=== PATIENT | female | born 1995 | race Caucasian/White ===

== ENCOUNTER 2018-04-11 07:12 | Emergency (ER) | payer BC, OTHER ==
[2018-04-11 07:22] VITALS: RESP 18
--- NOTE | 2018-04-11 07:42 | ED ---
General Adult HPI - General Chief complaint: Vaginal Bleeding Stated complaint: 7 weeks & bleeding Source: patient Mode of arrival: ambulatory - History of Present Illness Initial comments: Dictation was produced using [employer] dictation software. please excuse any grammatical, word or spelling errors. Chief Complaint: 23-year-old female with no significant past medical history, presents with vaginal bleeding. History of Present Illness: Patient is 23-year-old female she had multiple urine positive test recently. She is allegedly 7-8 weeks based on last menstrual period. Patient states she woke up this morning with some blood on her underwear. She denies any active bleeding. Patient has history of 3 pregnancies. Her first one resulted in a medical , she has 1 live child. This is her third . Patient denies any constitutional symptoms. Denies any pain complaints The ROS documented in this emergency department record has been reviewed and confirmed by me. Those systems with pertinent positive or negative responses have been documented in the HPI. All other systems are other negative and/or noncontributory. - Related Data Home Medications Medication Instructions Recorded Confirmed Acetaminophen Tab [Tylenol Tab] 325 mg PO Q6H PRN 04/11/18 04/11/18 Vpp-Zhea-Pmboq Acid 1 cap PO DAILY 04/11/18 04/11/18 [-U Capsule (formulary)] Allergies Allergy/AdvReac Type Severity Reaction Status Date / Time No Known Allergies Allergy Verified 04/11/18 08:52 Review of Systems ROS Statement: Those systems with pertinent positive or pertinent negative responses have been documented in the HPI. ROS Other: All systems not noted in ROS Statement are negative. Past Medical History Past Medical History: No Reported History History of Any Multi-Drug Resistant Organisms: None Reported Additional Past Surgical History / Comment(s): Past Psychological History: No Psychological Hx Reported Smoking Status: Never smoker Past Alcohol Use History: Rare Past Drug Use History: None Reported General Exam - General Exam Comments Initial Comments: PHYSICAL EXAM: General Impression: Alert and oriented x3, not in acute distress HEENT: Normocephalic atraumatic, extra-ocular movements intact, pupils equal and reactive to light bilaterally, mucous membranes moist. Cardiovascular: Heart regular rate and rhythm, S1&S2 audible, no murmurs, rubs or gallops Chest: Lungs clear to auscultation bilaterally, no rhonchi, no wheeze, no rales Abdomen: Bowel sounds present, abdomen soft, non-tender, non-distended, no organomegaly Musculoskeletal: Pulses present and equal in all extremities, no peripheral edema Motor: Power 5/5 bilaterally, no focal deficits noted Neurological: CN II-XII grossly intact, no focal motor or sensory deficits noted Skin: Intact with no visualized rashes Psych: Normal affect and mood Course Vital Signs 04/11/18 04/11/18 07:15 09:40 Temperature 98.1 F 98.8 F Pulse Rate 86 72 Respiratory 18 18 Rate Blood Pressure 133/79 129/75 O2 Sat by Pulse 100 98 Oximetry Medical Decision Making - Medical Decision Making ED course: 23-year-old female presents with vaginal bleeding in . Vital signs upon arrival are within normal limits.Laboratory evaluation obtained. CBC unremarkable. Metabolic panel is negative. Urine hCG is positive. Patient is blood type A positive. Transvaginal ultrasound was obtained showing single live intrauterine gestation with crown-rump length of 0.8 cm. There is a heart rate. Ultrasound H is approximately 26 weeks and 5 days. There is small subchorionic hemorrhage noted. Overall exam indicated at this time. Pelvic examination showed mild bleeding coming from the cervical os. Patient told that this could be early signs of miscarriage. She is told that she has small chorionic hemorrhage. She is counseled on pelvic rest. Otherwise she is told to schedule follow-up with [facility] [facility] as scheduled. She has an appointment early next week. Patient understandable and agreeable to plan. She is told back with any worsening symptoms. - Lab Data Result diagrams: 04/11/18 07:35 04/11/18 07:35 Lab Results 04/11/18 04/11/18 04/11/18 Range/Units 07:35 07:35 07:35 WBC 9.5 (3.8-10.6) k/uL RBC 4.48 (3.80-5.40) m/uL Hgb 13.4 (11.4-16.0) gm/dL Hct 40.1 (34.0-46.0) % MCV 89.6 (80.0-100.0) fL MCH 30.0 (25.0-35.0) pg MCHC 33.5 (31.0-37.0) g/dL RDW 12.3 (11.5-15.5) % Plt Count 323 (150-450) k/uL Neutrophils % 75 % Lymphocytes % 19 % Monocytes % 4 % Eosinophils % 1 % Basophils % 1 % Neutrophils # 7.1 (1.3-7.7) k/uL Lymphocytes # 1.8 (1.0-4.8) k/uL Monocytes # 0.3 (0-1.0) k/uL Eosinophils # 0.1 (0-0.7) k/uL Basophils # 0.1 (0-0.2) k/uL Sodium 138 (137-145) mmol/L Potassium 3.8 (3.5-5.1) mmol/L Chloride 103 (98-107) mmol/L Carbon Dioxide 23 (22-30) mmol/L Anion Gap 12 mmol/L BUN 9 (7-17) mg/dL Creatinine 0.64 (0.52-1.04) mg/dL Est GFR (CKD-EPI)AfAm >90 (>60 ml/min/1.73 sqM) Est GFR (CKD-EPI)NonAf >90 (>60 ml/min/1.73 sqM) Glucose 108 H (74-99) mg/dL Calcium 9.3 (8.4-10.2) mg/dL Urine HCG, Qual Detected (Not Detectd) Blood Type Blood Type Recheck Antibody Screen Spec Expiration Date 04/11/18 Range/Units 07:35 WBC (3.8-10.6) k/uL RBC (3.80-5.40) m/uL Hgb (11.4-16.0) gm/dL Hct (34.0-46.0) % MCV (80.0-100.0) fL MCH (25.0-35.0) pg MCHC (31.0-37.0) g/dL RDW (11.5-15.5) % Plt Count (150-450) k/uL Neutrophils % % Lymphocytes % % Monocytes % % Eosinophils % % Basophils % % Neutrophils # (1.3-7.7) k/uL Lymphocytes # (1.0-4.8) k/uL Monocytes # (0-1.0) k/uL Eosinophils # (0-0.7) k/uL Basophils # (0-0.2) k/uL Sodium (137-145) mmol/L Potassium (3.5-5.1) mmol/L Chloride (98-107) mmol/L Carbon Dioxide (22-30) mmol/L Anion Gap mmol/L BUN (7-17) mg/dL Creatinine (0.52-1.04) mg/dL Est GFR (CKD-EPI)AfAm (>60 ml/min/1.73 sqM) Est GFR (CKD-EPI)NonAf (>60 ml/min/1.73 sqM) Glucose (74-99) mg/dL Calcium (8.4-10.2) mg/dL Urine HCG, Qual (Not Detectd) Blood Type A Positive Blood Type Recheck No Antibody Screen NEGATIVE Spec Expiration Date 04/14/2018 - 233 Disposition Clinical Impression: Vaginal bleeding affecting early Disposition: HOME SELF-CARE Condition: Good Instructions: First Trimester Vaginal Bleed (ED) Is patient prescribed a controlled substance at d/c from ED?: No Referrals: Juan Bonner DO [Primary Care Provider] - 1-2 days Time of Disposition: 10:04
[2018-04-11 07:50] LABS: Basophils # (A) 0.1 k/uL (0-0.2); Basophils % (A) 1 %; Eosinophils # (A) 0.1 k/uL (0-0.7); Eosinophils % (A) 1 %; HCT 40.1 % (34.0-46.0); HGB 13.4 gm/dL (11.4-16.0); Lymphocytes # (A) 1.8 k/uL (1.0-4.8); Lymphocytes % (A) 19 %; MCHC 33.5 g/dL (31.0-37.0); MCV 89.6 fL (80.0-100.0); Mean Platelet Volume 6.9; Monocytes # (A) 0.3 k/uL (0-1.0); Monocytes % (A) 4 %; Neutrophils # (A) 7.1 k/uL (1.3-7.7); Neutrophils % (A) 75 %; Platelet Count 323 k/uL (150-450); RBC 4.48 m/uL (3.80-5.40); RDW 12.3 % (11.5-15.5); WBC 9.5 k/uL (3.8-10.6)
[2018-04-11 08:04] LABS: Anion Gap 12 mmol/L; Blood Urea Nitrogen 9 mg/dL (7-17); Calcium 9.3 mg/dL (8.4-10.2); Carbon Dioxide 23 mmol/L (22-30); Chloride 103 mmol/L (98-107); Glucose 108 mg/dL (74-99); Potassium 3.8 mmol/L (3.5-5.1); Sodium 138 mmol/L (137-145)
--- NOTE | 2018-04-11 08:49 | US ---
EXAMINATION TYPE: Transabdominal DATE OF EXAM: 10/29/17 COMPARISON: NONE CLINICAL HISTORY: pain. bleeding with EXAM PERFORMED: Transvaginal (TV) and Transabdominal (TA) EXAM MEASUREMENTS: GESTATIONAL AGE / DATING Physician Established: Not yet established Dates by LMP: (7 weeks/5 days) EDC: 11/23/2018 Dates by First Scan: No previous this is first scan Dates by Current Scan for: (6 weeks/6 days) EDC: 11/29/2018 MATERNAL ANATOMY Uterus: 9.5 x 4.4 x 5.3 cm Right Ovary: 3.7 x 2.9 x 2.7 cm Left Ovary: 3.5 x 1.8 x 1.7 cm Post CDS / Adnexa: no free fluid Presence of free fluid: none Presence of subchorionic bleed: hypoechoic area adjacent to sac measures 1.5 x 0.7 x 1.5 cm GESTATION / SURVEY CRL: 0.8 cm (6 weeks/5 days) MSD: 2.1 cm (6 weeks/6 days) Yolk Sac (normal less than 6mm): 0.2 cm Heart Rate: 118 bpm Rhythm: Normal IUP: Viable IUP Date of LMP: 02/16/2018 Viable IUP, 6 weeks 6 days, HR 118. Single live intrauterine gestation is seen as gestational sac, yolk sac, and pole are present. No free fluid is seen in pelvic cul-de-sac. There is suspected small subchorionic hemorrhage along in ferior-anterior margin as detailed above. Both ovaries are seen. No suspicious extraovarian adnexal masses are present. IMPRESSION: Single live intrauterine gestation is seen, mean crown-rump length is 0.8 cm corresponding to 6 week 5 day old fetus. Small subchorionic hemorrhage is noted.
[2018-04-11 09:42] VITALS: BP 129/75; PULSE 72; TEMP 98.8
== END 2018-04-11 10:16 | disposition home or self-care (01) ==
LOC: EC 07:12
DX: O20.9 Hemorrhage in early pregnancy, unspecified (principal); Z3A.01 Less than 8 weeks gestation of pregnancy
CPT/HCPCS: 36415; 76801; 76817; 80048; 81025; 85025; 86850; 86900; 86901; 99284

== ENCOUNTER 2018-11-23 14:29 | Inpatient (IN) | payer OTHER ==
[2018-11-25] MEDS ORDERED: CARBOPROST TROMETHAMINE 250 MCG/ML 1 ML AMP IM PRN (06:05)
[2018-11-25] MEDS ORDERED: METHYLERGONOVINE 0.2 MG/ML 1 ML AMP IM PRN (06:05)
[2018-11-25] MEDS ORDERED: LIDOCAINE 0.5% (PF) 5 MG/ML (50 ML SDV) SQ PRN (06:05)
[2018-11-25] MEDS ORDERED: OXYTOCIN 10 UNIT/ML 1 ML VIAL IM PRN (06:05)
[2018-11-25] MEDS ORDERED: TERBUTALINE 1 MG/ML VIAL SQ PRN (06:05)
[2018-11-25 06:23] VITALS: BMI 34.8
[2018-11-25] MEDS: LACTATED RINGERS 1,000 ML IV SCH ×2 (06:27→09:22)
[2018-11-25] MEDS: OXYTOCIN 30 UNITS/500 ML NS 30 UNIT in SALINE 1 500ML.BAG IV SCH (06:35)
[2018-11-25 06:38] LABS: Basophils % (A) 0 %; Eosinophils # (A) 0.1 k/uL (0-0.7); Eosinophils % (A) 1 %; HCT 36.7 % (34.0-46.0); HGB 12.1 gm/dL (11.4-16.0); Lymphocytes # (A) 1.8 k/uL (1.0-4.8); Lymphocytes % (A) 19 %; MCH 28.1 pg (25.0-35.0); MCV 85.2 fL (80.0-100.0); Mean Platelet Volume 8.2; Monocytes # (A) 0.5 k/uL (0-1.0); Monocytes % (A) 5 %; Neutrophils # (A) 6.8 k/uL (1.3-7.7); Neutrophils % (A) 72 %; Platelet Count 257 k/uL (150-450); RBC 4.31 m/uL (3.80-5.40); RDW 13.6 % (11.5-15.5); WBC 9.5 k/uL (3.8-10.6)
--- NOTE | 2018-11-25 07:28 | P.HPOB ---
History of Present Illness H&P Date: 11/25/18 This is a 23-year-old white female 3 para 1011 EDC 11/23/2018 at 40-2/7 weeks' gestation. Patient presents for induction for postdates . Fetus is been active throughout the . She is having mild spontaneous uterine contractions. She denies vaginal bleeding or fluid leakage. Past medical history is negative. Past surgical history voluntary termination of 2013. Current medications vitamins daily. ALLERGIES none known. Social history patient is a former tobacco smoker, she quit 1 year ago. She is , she denies alcohol or drug use. Family history significant for anxiety and depression, bladder cancer and diabetes, hypercholesterolemia and hypertension, gout. history group B strep cultures negative, rubella status immune. G onorrhea and chlamydia cultures negative, 1 hour Glucola 107, blood type A positive, antibody screen negative, Pap smear negative. Urine culture negative. On exam this is a pleasant white female who is 5 foot 4 inches, 203 pounds, blood pressure 129/77, pulse 93. Gen. physical exam is within normal limits. Cervix is 4 cm dilated, 70% effaced, -2 station, vertex presentation. Artificial amniorrhexis reveals clear fluid. Uterine contractions are occurring mildly approximately every 3-4 minutes apart. heart rate is in the 120s baseline with frequent accelerations consistent with reactive NST. Impression: 40-2/7 weeks intrauterine , here for induction of labor, unremarkable and all signs reassuring. Plan: Oxytocin per hospital protocol. Continue close maternal and surveillance. Analgesic options have been reviewed with the patient and she will request them as needed. Anticipate normal spontaneous vaginal delivery. Review of Systems Constitutional: Reports as per HPI Past Medical History Past Medical History: No Reported History History of Any Multi-Drug Resistant Organisms: None Reported Additional Past Surgical History / Comment(s): Past Anesthesia/Blood Transfusion Reactions: No Reported Reaction Past Psychological History: No Psychological Hx Reported, Anxiety, Depression Smoking Status: Former smoker Past Alcohol Use History: Rare Past Drug Use History: None Reported - Past Family History Mother Family Medical History: Cancer Medications and Allergies Home Medications Medication Instructions Recorded Confirmed Type Acetaminophen Tab [Tylenol Tab] 325 mg PO Q6H PRN 04/11/18 11/25/18 History Iys-Rsxo-Nmdlh Acid 1 cap PO DAILY 04/11/18 11/25/18 History [-U Capsule (formulary)] Allergies Allergy/AdvReac Type Severity Reaction Status Date / Time No Known Allergies Allergy Verified 11/25/18 06:04 Exam Vital Signs Temp Pulse Resp BP Pulse Ox 11/25/18 06:00 96.3 F L 93 16 129/77 98 Intake and Output 11/24/18 11/25/18 11/25/18 22:59 06:59 14:59 Other: # Voids 1 Weight 92.079 kg See dictation under HPI please Results Result Diagrams: 11/25/18 06:24 Assessment and Plan Assessment: 40-2/7 weeks intrauterine , here for elective induction of labor, unremarkable and all signs currently reassuring. Plan: Oxytocin per hospital protocol. Continue close maternal and surveillance. Analgesic options have been reviewed. Anticipate normal spontaneous vaginal delivery. Time with Patient: Less than 30
[2018-11-25] MEDS ORDERED: ROPIVACAINE 5MG/ML 20ML VIAL ONE (09:07)
[2018-11-25] MEDS ORDERED: SODIUM CHLORIDE 0.9% 100 ML BAG ONE (09:07)
[2018-11-25] MEDS ORDERED: fentaNYL (PF) 50 MCG/ML 5 ML AMP ONE (09:07)
[2018-11-25] MEDS ORDERED: KETOROLAC 30 MG/ML 1 ML VIAL ONE (13:47)
[2018-11-25] MEDS ORDERED: ONDANSETRON 4 MG/2 ML VIAL ONE (13:47)
[2018-11-25] MEDS ORDERED: SUCCINYLCHOLINE CHLORIDE 100 MG/5 ML SYR IV ONE (13:47)
[2018-11-25] MEDS ORDERED: PROPOFOL 10 MG/ML 20 ML VIAL IV ONE (13:47)
[2018-11-25] MEDS ORDERED: METOCLOPRAMIDE 5 MG/ML 2 ML VIAL IVP PRN ×2 (14:13→14:29)
[2018-11-25] MEDS ORDERED: diphenhydrAMINE 50 MG/ML 1 ML VIAL IVP PRN ×3 (14:13→14:29)
[2018-11-25] MEDS ORDERED: NALOXONE 0.4 MG/ML 1 ML VIAL IV PRN ×2 (14:13→14:29)
[2018-11-25] MEDS ORDERED: KETOROLAC 30 MG/ML 1 ML VIAL IVP PRN (14:13)
[2018-11-25] MEDS ORDERED: ZOLPIDEM 5 MG TAB PO PRN (14:29)
[2018-11-25] MEDS ORDERED: ACETAMINOPHEN TAB 325 MG TAB PO PRN (14:29)
[2018-11-25] MEDS ORDERED: diphenhydrAMINE 25 MG CAP PO PRN (14:29)
[2018-11-25] MEDS ORDERED: ONDANSETRON 4 MG/2 ML VIAL IVP PRN (14:29)
[2018-11-25] MEDS ORDERED: diphenhydrAMINE 50 MG CAP PO PRN (14:29)
--- NOTE | 2018-11-25 14:29 | P.OP ---
Date of Procedure: 11/25/18 Preoperative Diagnosis: 40 and 2 week intrauterine , arrest of descent in the second stage, nonreassuring heart tones Postoperative Diagnosis: Same, liveborn female infant, scores 8 and 9 at one and 5 minutes respectively Procedure(s) Performed: Primary low transverse section Anesthesia: MIRI Surgeon: Norma Calloway Driver Salesman #1: Cole Syed Estimated Blood Loss (ml): 600 IV fluids (ml): 700 Urine output (ml): 100 Pathology: other (Placenta) Condition: stable Disposition: PACU Operative Findings: Liveborn female infant, 8 lbs. 6 oz., 3810 g, right occiput posterior position. Normal-appearing tubes and ovaries bilaterally. Description of Procedure: Patient became completely dilated at 1250 hours and began the second stage of labor at that time. After contractions, variable decelerations were noted. These became late variable decelerations. Over the course of the second stage, arrest of descent occurred at 0 station. In addition, the decelerations became deeper into 70s to 60s range and decision was made to proceed with primary low transverse section. This was explained to the patient and her . She declined the option for tubal ligation. Patient was taken back to the operating suite and placed in the dorsal supine position. The abdomen was prepped and draped in usual sterile fashion. Vaginal prep was performed, Whitt catheter placed to direct drainage. The epidural was "topped off". However, adequate analgesia was not obtained. Decelerations were continued to the 60s to 70s range and decision was made to proceed with general anesthetic. This was performed without difficulty. Once the patient was asleep a low transverse skin incision was made in this is carried down to the subcutaneous tissue of about 3 cm depth. Fascia is isolated, scored, and extended bilaterally with curved Gonzales scissors. Peritoneum is next identified and incised, there is no bowel or bladder involvement. Bladder retractor is placed over the dome of the bladder. Bladder flap is created and the bladder is at all times Well from the operative field to avoid bladder and/or ureteral injury. A low transverse uterine incision is made. Upon entering the endometrial cavity clear fluid is noted. The incision is extended bluntly. Infant's head is delivered in the right occiput posterior position. Patient is officially delivered of a live female at 1358 hours. Umbilical cord is doubly clamped and ligated, she is handed to waiting nurses for evaluation where scores of 8 and 9 at one and 5 minutes respectively are given. Cord gases are sent to the lab. Placenta is delivered manually, it is inspected and noted to be intact with trivascular cord at 1358 hours. It will be sent to pathology for further evaluation. The uterus is then externalized and massaged. It is wiped clean with a sterile sponge to avoid any retained products of conception. The edges of the incision are grasped with [place] clamps. The incision is closed initially with a running locking stitch of 0 Vicryl. Second layer is imbricated, again with 0 Vicryl for excellent reapproximation. Whitt is noted to be draining clear urine. The abdomen was suctioned with suction on guard. The uterus is placed gently back into the abdominal cavity, bilateral gutters are inspected and cleaned. Uterine incision is clean and dry. Tubes and ovaries appear normal to inspection, no uterine defects are noted. Peritoneum is allowed to close by secondary intention. Fascia is closed in a running stitch of 0 Vicryl suture. Subcutaneous tissue is irrigated, noted to be clean and dry. It is reapproximated with 3-0 Vicryl in a running stitch. Subcuticular stitch of 4-0 undyed Vicryl is then placed for grade approximation of the skin edges. Steri- Strips and Mastisol are applied to the wound. Dressing is applied as well. Whitt is noted to be draining clear urine. All sponge needle and enhancement counts are correct. Patient is brought back to the recovery room in very good condition with a blood pressure 100/52, pulse 85, 98% O2 saturation. Duramorph is given through the epidural prior to removing the catheter.
[2018-11-25] MEDS ORDERED: LACTATED RINGERS 1,000 ML IV SCH (14:30)
[2018-11-25] MEDS: KETOROLAC 30 MG/ML 1 ML VIAL IVP PRN (20:11)
[2018-11-26] MEDS: SENNOSIDES-DOCUSATE SODIUM 1 EACH TAB PO SCH ×3 (00:26→20:22)
[2018-11-26] MEDS: KETOROLAC 30 MG/ML 1 ML VIAL IVP PRN ×2 (03:40→10:54)
--- NOTE | 2018-11-26 07:23 | P.PN ---
Subjective Progress Note Date: 11/26/18 Slept well. No problems or complaints. Objective - Vital Signs Vital signs: Vital Signs Temp 97.7 F 11/26/18 04:00 Pulse 80 11/26/18 04:00 Resp 16 11/26/18 06:00 BP 109/58 11/26/18 04:00 Pulse Ox 98 11/25/18 20:00 Intake & Output 11/25/18 11/26/18 11/26/18 18:59 06:59 18:59 Output Total 100 850 Balance -100 -850 Output: Urine 100 850 Other: Voiding Method Indwelling Catheter - Constitutional General appearance: Present: average body habitus, cooperative - EENT Eyes: Present: PERRLA ENT: Present: hearing grossly normal - Neck Neck: Present: normal ROM - Respiratory Respiratory: bilateral: CTA - Cardiovascular Rhythm: regular - Gastrointestinal Gastrointestinal Comment(s): Incision clean and dry, intact, Steri-Strips applied. Fundus firm, midline, symmetric, 18 week size. General gastrointestinal: Present: normal bowel sounds - Integumentary Integumentary: Present: normal - Neurologic Neurologic: Present: CNII-XII intact - Musculoskeletal Musculoskeletal: Present: gait normal - Psychiatric Psychiatric: Present: A&O x's 3, appropriate affect, intact judgment & insight - Labs CBC & Chem 7: 11/25/18 06:24 Assessment and Plan Assessment: Postoperative day #1, doing well. Plan: Advance diet and activity. Check CBC, then DC IV. Continue post operative care. Likely discharge home tomorrow. Time with Patient: Less than 30
[2018-11-26 07:46] LABS: Basophils % (A) 0 %; Eosinophils % (A) 0 %; HCT 29.9 % (34.0-46.0); HGB 10.2 gm/dL (11.4-16.0); Lymphocytes # (A) 1.5 k/uL (1.0-4.8); Lymphocytes % (A) 13 %; MCH 29.4 pg (25.0-35.0); MCHC 34.3 g/dL (31.0-37.0); MCV 85.9 fL (80.0-100.0); Mean Platelet Volume 8.4; Monocytes # (A) 0.6 k/uL (0-1.0); Monocytes % (A) 5 %; Neutrophils # (A) 9.3 k/uL (1.3-7.7); Neutrophils % (A) 79 %; Platelet Count 215 k/uL (150-450); RBC 3.48 m/uL (3.80-5.40); RDW 13.6 % (11.5-15.5); WBC 11.7 k/uL (3.8-10.6)
--- NOTE | 2018-11-26 09:01 | P.PN ---
Progress Note - Text Progress Note Date: 11/26/18 Date:[11/26/2018] Time:[0600] The patient is status post section day 1 Vital signs stable, denies any headaches or back pain VAS:[ 4 out of 10] Patient has no complaints of pain. The patient incurred some minimal itching yesterday, this itching is now subsiding. Pain meds to be managed by service.
[2018-11-26] MEDS: IBUPROFEN 600 MG TAB PO PRN (17:16)
[2018-11-27] MEDS: IBUPROFEN 600 MG TAB PO PRN ×2 (00:04→06:03)
[2018-11-27] MEDS: LACTATED RINGERS 1,000 ML IV SCH ×3 (00:31→03:59)
[2018-11-27] MEDS: OXYTOCIN 30 UNITS/500 ML NS 30 UNIT in SALINE 1 500ML.BAG IV SCH (00:32)
--- NOTE | 2018-11-27 06:49 | P.DS ---
Providers Date of admission: 11/25/18 05:54 Expected date of discharge: 11/27/18 Attending physician: Norma Calloway Primary care physician: Stated None Hospital Course: This is a 23-year-old white female 3 para 1011 EDC 11/23/2018 at 40-2/7 weeks' gestation. Patient presented for induction for postdates , with favorable multiparous cervix. Fetus is been active throughout the . Her history is significant for negative group B strep cultures, blood type A positive, rubella status immune. Please see dictated history and physical for details. Patient was admitted, artificial amniorrhexis revealed clear fluid. She progressed through labor and became completely dilated. However, after one hour of the second stage, no descent was noted in repetitive late deep variables were noted. Decision was made to proceed with primary low transverse section. She went on to deliver a liveborn female with scores of 8 and 9 at one and 5 minutes respectively. Infant weight 8 lbs. 6 oz. or 3810 g. Estimate a blood loss at surgery was 600 mL's. Please see my dictated delivery note for details. Infant was found to be in the right occiput posterior position. Patient is doing well at this time. She is voiding, inability and passing flatus without difficulty. Vital signs are stable and she is afebrile. Breasts are not engorged. Extremities are negative for edema. Incision is clean and dry, intact, Steri-Strips applied. Fundus is firm and in the midline, symmetric and 18 week size. [place] infant is doing well. Patient's vital signs are stable and she has remained afebrile. Patient is being discharged home in very good condition. She will follow-up in the office with me in 2 weeks. I have reminded her no intercourse, tampons or douching. She will use [id number] Advil or Aleve, or ibuprofen pills, 600 mg every 6 hours as needed. She will call with any fevers shakes or chills, foul smelling or copious lochia, with the passage of large blood clots, with any pain not alleviated by [id number] products, or indeed with any concerns. Her is planning vasectomy. Infant will follow-up with assessment nurse practitioner as per recommendations. Patient Condition at Discharge: Good Plan - Discharge Summary Discharge Rx Participant: No New Discharge Prescriptions: No Action Gvh-Regr-Yepwo Acid [-U Capsule (formulary)] 1 cap PO DAILY Acetaminophen Tab [Tylenol Tab] 325 mg PO Q6H PRN PRN Reason: Pain Discharge Medication List Acetaminophen Tab [Tylenol Tab] 325 mg PO Q6H PRN 04/11/18 [History] Umq-Fxgg-Fqpkp Acid [-U Capsule (formulary)] 1 cap PO DAILY 04/11/18 [History] Follow up Appointment(s)/Referral(s): Norma Calloway MD [STAFF PHYSICIAN] - 2 Weeks Discharge Disposition: HOME SELF-CARE
[2018-11-27 08:21] VITALS: BP 126/78; PULSE 80; RESP 17; TEMP 98
[2018-11-27] MEDS: SENNOSIDES-DOCUSATE SODIUM 1 EACH TAB PO SCH (08:23)
== END 2018-11-27 11:10 | disposition home or self-care (01) | DRG 788 ==
LOC: 4FBP 11-25 05:54
PROVIDERS: ADMIT Obstetrics & Gynecology; ATTEND Obstetrics & Gynecology
PROC: 00HU33Z Insertion of Infusion Device into Spinal Canal, Percutaneous Approach (ICD-10-PCS; 2018-11-25)
PROC: 3E0R3BZ Introduction of Anesthetic Agent into Spinal Canal, Percutaneous Approach (ICD-10-PCS; 2018-11-25)
PROC: 3E033VJ Introduction of Other Hormone into Peripheral Vein, Percutaneous Approach (ICD-10-PCS; 2018-11-25)
PROC: 10D00Z1 Extraction of Products of Conception, Low, Open Approach (ICD-10-PCS; principal; 2018-11-25 13:39)
DX: O48.0 Post-term pregnancy (principal); O76 Abnormality in fetal heart rate and rhythm complicating labor and delivery; O62.1 Secondary uterine inertia; O99.62 Diseases of the digestive system complicating childbirth; O99.72 Diseases of the skin and subcutaneous tissue complicating childbirth; K21.9 Gastro-esophageal reflux disease without esophagitis; L29.9 Pruritus, unspecified; Z37.0 Single live birth; Z3A.40 40 weeks gestation of pregnancy; Z87.891 Personal history of nicotine dependence; Z83.3 Family history of diabetes mellitus; Z82.49 Family history of ischemic heart disease and other diseases of the circulatory system; Z80.52 Family history of malignant neoplasm of bladder; Z81.8 Family history of other mental and behavioral disorders; Z84.89 Family history of other specified conditions
CPT/HCPCS: 85025; 86850; 86900; 86901

== ENCOUNTER → 2021-07-05 | Outpatient (CLI) | payer OTHER ==
--- NOTE | 2021-07-05 15:55 | XR ---
EXAMINATION TYPE: XR shoulder complete LT DATE OF EXAM: 07/05/2021 COMPARISON: NONE HISTORY: Pain TECHNIQUE: Three views are submitted. FINDINGS: The osseous structures are intact. There is no acute fracture or dislocation. The AC joint is maint ained. IMPRESSION: 1. No acute process.
== END | disposition home or self-care (01) ==
LOC: RADXRYALE 15:41
PROVIDERS: ATTEND Physician Assistant
DX: M25.512 Pain in left shoulder (principal)

== ENCOUNTER → 2022-03-15 | Outpatient (CLI) | payer OTHER ==
--- NOTE | 2022-03-15 23:31 | CT ---
EXAMINATION TYPE: CT abdomen pelvis w con DATE OF EXAM: 03/15/2022 COMPARISON: NONE HISTORY: 27-year-old female Upper abdominal pain. R10.11, R10.30, D72.829 TECHNIQUE: Contiguous axial scanning of the abdomen and pelvis following administration of 100 ml Iso robert 300 IV contrast. Delayed images through the kidneys and coronal/sagittal reconstructions perform ed. CT DLP: 1066 mGycm Automated exposure control for dose reduction was used. FINDINGS: Heart normal size without pericardial effusion. Liver mildly enlarged at 18.3 cm. No focal lesion. Some focal fat along the anterior falciform ligame nt. Portal venous system is patent. No biliary ductal dilatation. Gallbladder, adrenal glands, kidneys, spleen with anterior splenule, and pancreas within normal limit s. No dilated small bowel, free fluid, or free air. No abnormal small bowel wall thickening or inflammat ion. Numerous scattered mesenteric lymph nodes which are not enlarged to borderline enlarged measuring up to 9 mm throughout. Suspect visualization of a normal caliber appendix. Oral contrast has just crossed the ileocecal valv e region. There is moderate stool burden. No pericolonic inflammatory change. Bladder urine distended. A few pelvic phleboliths are noted. Uterus anteverted. Both ovaries are visu alized. No abnormal fluid collection in the pelvis or pelvic lymphadenopathy. Bones: Subtle subarticular erosion suggested at the bilateral SI joints with subarticular sclerosis. IMPRESSION: 1. SUBARTICULAR SCLEROSIS AND SUBTLE EROSION AT THE BILATERAL SI JOINTS. CORRELATE FOR POTENTIAL SACR OILIITIS. NO SPECIFIC FINDINGS OF IBD AT THIS TIME. 2. SCATTERED BORDERLINE ENLARGED MESENTERIC LYMPH NODES MEASURING UP TO 9 MM COULD BE REACTIVE/POST I NFLAMMATORY. MESENTERIC ADENITIS CAN BE CONSIDERED WELL.
== END | disposition home or self-care (01) ==
LOC: RADCTMAIN 11:03
PROVIDERS: ATTEND Family Medicine
DX: R10.11 Right upper quadrant pain (principal); R10.30 Lower abdominal pain, unspecified; D72.829 Elevated white blood cell count, unspecified
CPT/HCPCS: 74177; Q9967 ×2

== ENCOUNTER → 2022-08-20 | Outpatient (CLI) | payer OTHER ==
--- NOTE | 2022-08-20 12:25 | XR ---
EXAMINATION TYPE: XR lumbosacral spine min 4V DATE OF EXAM: 08/20/2022 11:47 AM INDICATION: Patient age:Female; 27 years old; Reason for study: [id number] DDD; [facility]. COMPARISON: CT abdomen and pelvis 03/15/2022. TECHNIQUE: Frontal, lateral , bilateral oblique and coned in L5-S1 lateral views of the spine. FINDINGS: There are 5 lumbar type vertebral bodies identified. Minimal levocurvature of the lumbar sp ine. No evidence of any acute osseous pathology. No evidence of loss of vertebral body height is see n. There is normal alignment of the lumbar vertebral bodies. No neural foraminal stenosis demonstrate d. Mild disc space narrowing with endplate sclerosis involving L5-S1. Similar subarticular sclerosis of the bilateral SI joints. IMPRESSION: 1. No acute process. 2. Mild degenerative disc disease at L5-S1.
== END | disposition home or self-care (01) ==
LOC: RADXRYALE 11:32
PROVIDERS: ATTEND Physician Assistant Medical
DX: M51.37 Other intervertebral disc degeneration, lumbosacral region (principal)
CPT/HCPCS: 72110

== ENCOUNTER → 2022-08-29 | Outpatient (CLI) | payer OTHER ==
--- NOTE | 2022-08-29 08:46 | USB ---
Reason for Exam: Clinical finding. Patient History: Menarche at age 10. First Full-Term at age 17. Hormonal Contraceptives for 6 years from age 17 until age 23. Maternal aunt had breast cancer, age 44. Findings: The upper section of the breast of the right breast, the axilla of the right breast and the retroareolar of the right breast were scanned. No solid or cystic masses are identified.. Overall Assessment: Probably benign, BI-RAD 3 Management: Diagnostic Mammogram of the right breast in 6 months. A clinical breast exam by your physician is recommended on an annual basis and results should be correlated with mammographic findings. This exam should not preclude additional follow-up of suspicious palpable abnormalities. Results were given to the patient verbally at the time of exam. Electronically signed and approved by: Kyle Scherer DO
--- NOTE | 2022-08-31 15:06 | MM ---
Reason for Exam: Clinical finding. Patient History: Menarche at age 10. First Full-Term at age 17. Hormonal Contraceptives for 6 years from age 17 until age 23. Maternal aunt had breast cancer, age 44. Last menstrual period: 07/29/2022 Tissue Density: The breast tissue is heterogeneously dense. This may lower the sensitivity of mammography. Findings: Nodular density right breast. Ultrasound is recommended. Also palpable marker is noted and ultrasound dislocation is recommended as well. Overall Assessment: Incomplete: need additional imaging evaluation, BI-RAD 0 Management: Diagnostic Breast Ultrasound of the right breast. A clinical breast exam by your physician is recommended on an annual basis and results should be correlated with mammographic findings. This exam should not preclude additional follow-up of suspicious palpable abnormalities. Results were given to the patient verbally at the time of exam. Electronically signed and approved by: Cheng Blackmon M.D. Radiologis
== END | disposition home or self-care (01) ==
LOC: RADMAMWWP 07:26
PROVIDERS: ATTEND Family Medicine
DX: D48.61 Neoplasm of uncertain behavior of right breast (principal); Z80.3 Family history of malignant neoplasm of breast
CPT/HCPCS: 77066

== ENCOUNTER → 2022-11-12 | Outpatient (CLI) | payer OTHER ==
--- NOTE | 2022-11-13 08:38 | XR ---
EXAMINATION TYPE: XR chest 2V DATE OF EXAM: 11/12/2022 COMPARISON: NONE HISTORY: Cough TECHNIQUE: Frontal and lateral views of the chest are obtained. FINDINGS: The heart size is normal. The cardiomediastinal silhouette and pulmonary vasculature are w ithin normal limits. There is no focal consolidation, significant pleural effusion, or pneumothorax. IMPRESSION: No acute cardiopulmonary process.
== END | disposition home or self-care (01) ==
LOC: RADXRYALE 16:23
PROVIDERS: ATTEND Physician Assistant
DX: R05.9 Cough, unspecified (principal)
CPT/HCPCS: 71046

== ENCOUNTER → 2023-06-06 | Outpatient (CLI) | payer OTHER ==
--- NOTE | 2023-06-06 12:50 | MM ---
Reason for Exam: Follow-up at short interval from prior study. Last screening mammogram was performed 9 month(s) ago. Patient History: Menarche at age 10. First Full-Term at age 17. Premenopausal. Hormonal Contraceptives for 6 years from age 17 until age 23. Maternal aunt had breast cancer, age 44. Last menstrual period: 05/08/2023 Prior Study Comparison: 08/29/2022 Bilateral MG diagnostic mammo w CAD [facility], [facility]. Tissue Density: Right: There are scattered fibroglandular densities. Findings: Analyzed By CAD. No new suspicious masses, calcifications or distortions. Overall Assessment: Negative, BI-RAD 1 Management: Screening Mammogram of both breasts at age 38. Results were given to the patient verbally at the time of exam. Patient should continue monthly self-breast exams. A clinical breast exam by your physician is recommended on an annual basis. This exam should not preclude additional follow-up of suspicious palpable abnormalities. Note on Eboni scores and lifetime risk: 1. A Eboni score greater than 3% is considered moderate risk. If this is the case, consider specialist referral to assess eligibility for a risk reducing agent. 2. If overall lifetime risk for the development of breast cancer is 20% or higher, the patient may qualify for future screening with alternating mammogram and breast MRI. Electronically signed and approved by: Kyle Scherer DO
== END | disposition home or self-care (01) ==
LOC: RADMAMWWP 09:19
PROVIDERS: ATTEND Family Medicine
DX: D48.61 Neoplasm of uncertain behavior of right breast (principal); Z80.3 Family history of malignant neoplasm of breast
CPT/HCPCS: 77061; 77065

== ENCOUNTER 2023-12-25 10:52 | Emergency (ER) | payer OTHER ==
[2023-12-25 11:36] LABS: Basophils % (A) 0 %; Eosinophils # (A) 0.1 k/uL (0-0.7); Eosinophils % (A) 0 %; HCT 34.9 % (34.0-46.0); HGB 11.7 gm/dL (11.4-16.0); Lymphocytes % (A) 6 %; MCH 30.5 pg (25.0-35.0); MCHC 33.5 g/dL (31.0-37.0); MCV 91.1 fL (80.0-100.0); Mean Platelet Volume 7.8; Monocytes # (A) 0.7 k/uL (0-1.0); Monocytes % (A) 4 %; Neutrophils # (A) 14.1 k/uL (1.3-7.7); Neutrophils % (A) 88 %; Platelet Count 283 k/uL (150-450); RBC 3.83 m/uL (3.80-5.40); RDW 12.6 % (11.5-15.5)
[2023-12-25 11:42] VITALS: PULSE 101; RESP 20; TEMP 98
[2023-12-25 11:48] LABS: ALT 16 U/L (4-34); AST 19 U/L (14-36); African American GFR (CKD) >90 (>60 ml/min/1.73 sqM); Albumin 3.7 g/dL (3.5-5.0); Alkaline Phosphatase 59 U/L (38-126); Anion Gap 7 mmol/L; Blood Urea Nitrogen 10 mg/dL (7-17); Calcium 8.2 mg/dL (8.4-10.2); Carbon Dioxide 25 mmol/L (22-30); Chloride 106 mmol/L (98-107); Glucose 105 mg/dL (74-99); Lipase 23 U/L (23-300); Non-African American GFR(CKD) >90 (>60 ml/min/1.73 sqM); Potassium 3.4 mmol/L (3.5-5.1); Sodium 138 mmol/L (137-145); Total Bilirubin 0.6 mg/dL (0.2-1.3); Total Protein 6.5 g/dL (6.3-8.2)
[2023-12-25 11:58] LABS: Appearance,Urine Clear (Clear); Bilirubin,Urine Negative (Negative); Blood,Urine Moderate (Negative); Color,Urine Yellow; Glucose,Urine (UA) Negative (Negative); Ketones,Urine 2+ (Negative); Leukocyte Esterase,Urine Negative (Negative); Mucus,Urine Rare /hpf; Nitrite,Urine Negative (Negative); Protein,Urine 1+ (Negative); RBC,Urine 58 /hpf (0-5); Specific Gravity,Urine 1.027 (1.001-1.035); Squamous Epithelial Cell,Urine 5 /hpf (0-4); WBC,Urine 3 /hpf (0-5)
[2023-12-25] MEDS: KETOROLAC 15 MG/ML 1 ML VIAL IVP STA (12:02)
[2023-12-25] MEDS: METOCLOPRAMIDE 5 MG/ML 2 ML VIAL IVP STA (12:03)
[2023-12-25] MEDS: SODIUM CHLORIDE 0.9% 2,000 ML IV STA (12:04)
[2023-12-25] MEDS: cefTRIAXone IN SWFI 1,000 MG/10 ML SYRINGE IVP STA (12:05)
[2023-12-25] MEDS: diphenhydrAMINE 50 MG/ML 1 ML VIAL IVP STA (12:06)
--- NOTE | 2023-12-25 12:59 | ED ---
Abdominal Pain HPI - General Chief Complaint: Abdominal Pain Stated Complaint: abd pain Time Seen by Provider: 12/25/23 11:02 Source: patient, EMS, RN notes reviewed Mode of arrival: EMS Limitations: no limitations - History of Present Illness Initial Comments: 28-year-old female presents emergency department complaint abdominal pain, nausea vomiting. Patient states that she was seen on Saturday and diagnosed with strep. Patient states that she started vomiting shortly after. Patient states separate of taking the antibiotics. Patient denies any significant localized pain states it is more diffuse. Patient states she feels dehydrated. She was given Zofran by EMS with mild help. - Related Data Home Medications Medication Instructions Recorded Confirmed Acetaminophen Tab [Tylenol Tab] 325 mg PO Q6H PRN 04/11/18 11/25/18 Xhi-Oork-Qkudm Acid 1 cap PO DAILY 04/11/18 11/25/18 [-U Capsule (formulary)] Previous Rx's Medication Instructions Recorded Amoxicillin 875 mg PO Q12HR #20 tablet 12/23/23 Ondansetron Odt [Zofran Odt] 4 mg PO Q8HR PRN #10 tab 12/23/23 Metoclopramide [Reglan] 10 mg PO TID PRN #20 tab 12/25/23 Allergies Allergy/AdvReac Type Severity Reaction Status Date / Time azithromycin AdvReac Vomiting Verified 12/25/23 11:00 Review of Systems ROS Statement: Those systems with pertinent positive or pertinent negative responses have been documented in the HPI. ROS Other: All systems not noted in ROS Statement are negative. Past Medical History Past Medical History: GERD/Reflux History of Any Multi-Drug Resistant Organisms: None Reported Additional Past Surgical History / Comment(s): Past Anesthesia/Blood Transfusion Reactions: No Reported Reaction Past Psychological History: No Psychological Hx Reported, Anxiety, Depression Smoking Status: Vaper Past Alcohol Use History: Rare Past Drug Use History: None Reported - Past Family History Mother Family Medical History: Cancer General Exam General appearance: alert, in no apparent distress Head exam: Present: atraumatic, normocephalic, normal inspection Eye exam: Present: normal appearance, PERRL, EOMI. Absent: scleral icterus, conjunctival injection, periorbital swelling ENT exam: Present: normal exam, normal oropharynx, mucous membranes moist Neck exam: Present: normal inspection, full ROM. Absent: tenderness, meningismus, lymphadenopathy Respiratory exam: Present: normal lung sounds bilaterally. Absent: respiratory distress, wheezes, rales, rhonchi, stridor Cardiovascular Exam: Present: regular rate, normal rhythm, normal heart sounds. Absent: systolic murmur, diastolic murmur, rubs, gallop, clicks GI/Abdominal exam: Present: soft, tenderness (Minimal diffuse), normal bowel sounds. Absent: distended, guarding, rebound, rigid Course Vital Signs 12/25/23 12/25/23 10:54 13:41 Temperature 98.0 F Pulse Rate 101 H 101 H Respiratory 20 20 Rate Blood Pressure 126/78 122/74 O2 Sat by Pulse 99 95 Oximetry Medical Decision Making - Medical Decision Making Was pt. sent in by a medical professional or institution (PARDEEP Gardner, MEMBER SERVICES COORDINATOR, urgent care, hospital, or alf...) When possible be specific @ -No Did you speak to anyone other than the patient for history (EMS, parent, family, police, friend...)? What history was obtained from this source @ -No Did you review nursing and triage notes (agree or disagree)? Why? @ -I reviewed and agree with nursing and triage notes Were old charts reviewed (outside hosp., previous admission, EMS record, old EKG, old radiological studies, urgent care reports/EKG's, alf records)? Report findings @ -Reviewed recent ER record including strep and Cepheid Differential Diagnosis (chest pain, altered mental status, abdominal pain women, abdominal pain men, vaginal bleeding, weakness, fever, dyspnea, syncope, headache, dizziness, GI bleed, back pain, seizure, CVA, palpatations, mental h ealth, musculoskeletal)? @ -Differential Abdominal Pain Women: Appendicitis, Cholecystitis, diverticulosis, ischemic bowel, pancreatitis, hepatitis, UTI, gastroenteritis, AAA, incarcerated hernia, bowel obstruction, constipation, inflammatory bowel, hepatitis, peptic ulcer disease, splenic infarction, perforated viscus, vulvitis, ovarian torsion, PID, kidney stone, placenta abruption, this is not meant to be an all-inclusive list EKG interpreted by me (3pts min.). @ -None X-rays interpreted by me (1pt min.). @ -None done CT interpreted by me (1pt min.). @ -None done U/S interpreted by me (1pt. min.). @ -None done What testing was considered but not performed or refused? (CT, X-rays, U/S, l abs)? Why? @ -None What meds were considered but not given or refused? Why? @ -None Did you discuss the management of the patient with other professionals (professionals i.e. , PA, MEMBER SERVICES COORDINATOR, lab, RT, psych nurse, social work lecturer, education technician, teacher, welfare officer, case finishing machine adjuster)? Give summary @ -No Was smoking cessation discussed for >3mins.? @ -No Was critical care preformed (if so, how long)? @ -No Were there social determinants of health that impacted care today? How? (Homelessness, low income, unemployed, alcoholism, drug addiction, transportation, low edu. Level, literacy, decrease access to med. care, care home, rehab)? @ -No Was there de-escalation of care discussed even if they declined (Discuss DNR or withdrawal of care, Hospice)? DNR status @ -No What co-morbidities impacted this encounter? (DM, HTN, Smoking, COPD, CAD, Cancer, CVA, ARF, Chemo, Hep., AIDS, mental health diagnosis, sleep apnea, morbid obesity)? @ -None Was patient admitted / discharged? Hospital course, mention meds given and route, prescriptions, significant lab abnormalities, going to OR and other pertinent info. @ -Discharge patient feels greatly improved after antiemetics and IV fluids. Patient does have mild leukocytosis could be from strep, reactive emesis. She does have hematuria but states that she is starting her menstrual cycle. She has no flank pain. Undiagnosed new problem with uncertain prognosis? @ -No Drug Therapy requiring intensive monitoring for toxicity (Heparin, Nitro, Insulin, Cardizem)? @ -No Were any procedures done? @ -No Diagnosis/symptom? @ -Nausea vomiting, strep Acute, or Chronic, or Acute on Chronic? @ -Acute Uncomplicated (without systemic symptoms) or Complicated (systemic symptoms)? @ -Uncomplicated Side effects of treatment? @ -No Exacerbation, Progression, or Severe Exacerbation? @ -No Poses a threat to life or bodily function? How? (Chest pain, USA, OR, pneumonia, PE, COPD, DKA, ARF, appy, cholecystitis, CVA, Diverticulitis, Homicidal, Suicidal, threat to staff... and all critical care pts) @ -No - Lab Data Result diagrams: 12/25/23 11:26 12/25/23 11:26 Lab Results 12/25/23 12/25/23 12/25/23 Range/Units 11:26 11:26 11:26 WBC 16.0 H (3.8-10.6) k/uL RBC 3.83 (3.80-5.40) m/uL Hgb 11.7 (11.4-16.0) gm/dL Hct 34.9 (34.0-46.0) % MCV 91.1 (80.0-100.0) fL MCH 30.5 (25.0-35.0) pg MCHC 33.5 (31.0-37.0) g/dL RDW 12.6 (11.5-15.5) % Plt Count 283 (150-450) k/uL MPV 7.8 Neutrophils % 88 % Lymphocytes % 6 % Monocytes % 4 % Eosinophils % 0 % Basophils % 0 % Neutrophils # 14.1 H (1.3-7.7) k/uL Lymphocytes # 1.0 (1.0-4.8) k/uL Monocytes # 0.7 (0-1.0) k/uL Eosinophils # 0.1 (0-0.7) k/uL Basophils # 0.0 (0-0.2) k/uL Sodium (137-145) mmol/L Potassium (3.5-5.1) mmol/L Chloride (98-107) mmol/L Carbon Dioxide (22-30) mmol/L Anion Gap mmol/L BUN (7-17) mg/dL Creatinine (0.52-1.04) mg/dL Est GFR (CKD-EPI)AfAm (>60 ml/min/1.73 sqM) Est GFR (CKD-EPI)NonAf (>60 ml/min/1.73 sqM) Glucose (74-99) mg/dL Calcium (8.4-10.2) mg/dL Total Bilirubin (0.2-1.3) mg/dL AST (14-36) U/L ALT (4-34) U/L Alkaline Phosphatase (38-126) U/L Total Protein (6.3-8.2) g/dL Albumin (3.5-5.0) g/dL Lipase (23-300) U/L Urine Color Yellow Urine Appearance Clear (Clear) Urine pH 7.0 (5.0-8.0) Ur Specific [place] 1.027 (1.001-1.035) Urine Protein 1+ H (Negative) Urine Glucose (UA) Negative (Negative) Urine Ketones 2+ H (Negative) Urine Blood Moderate H (Negative) Urine Nitrite Negative (Negative) Urine Bilirubin Negative (Negative) Urine Urobilinogen 6.0 (<2.0) mg/dL Ur Leukocyte Esterase Negative (Negative) Urine RBC 58 H (0-5) /hpf Urine WBC 3 (0-5) /hpf Ur Squamous Epith Cells 5 H (0-4) /hpf Urine Mucus Rare H (None) /hpf Urine HCG, Qual Not Detected (Not Detectd) 12/25/23 Range/Units 11:26 WBC (3.8-10.6) k/uL RBC (3.80-5.40) m/uL Hgb (11.4-16.0) gm/dL Hct (34.0-46.0) % MCV (80.0-100.0) fL MCH (25.0-35.0) pg MCHC (31.0-37.0) g/dL RDW (11.5-15.5) % Plt Count (150-450) k/uL MPV Neutrophils % % Lymphocytes % % Monocytes % % Eosinophils % % Basophils % % Neutrophils # (1.3-7.7) k/uL Lymphocytes # (1.0-4.8) k/uL Monocytes # (0-1.0) k/uL Eosinophils # (0-0.7) k/uL Basophils # (0-0.2) k/uL Sodium 138 (137-145) mmol/L Potassium 3.4 L (3.5-5.1) mmol/L Chloride 106 (98-107) mmol/L Carbon Dioxide 25 (22-30) mmol/L Anion Gap 7 mmol/L BUN 10 (7-17) mg/dL Creatinine 0.58 (0.52-1.04) mg/dL Est GFR (CKD-EPI)AfAm >90 (>60 ml/min/1.73 sqM) Est GFR (CKD-EPI)NonAf >90 (>60 ml/min/1.73 sqM) Glucose 105 H (74-99) mg/dL Calcium 8.2 L (8.4-10.2) mg/dL Total Bilirubin 0.6 (0.2-1.3) mg/dL AST 19 (14-36) U/L ALT 16 (4-34) U/L Alkaline Phosphatase 59 (38-126) U/L Total Protein 6.5 (6.3-8.2) g/dL Albumin 3.7 (3.5-5.0) g/dL Lipase 23 (23-300) U/L Urine Color Urine Appearance (Clear) Urine pH (5.0-8.0) Ur Specific [place] (1.001-1.035) Urine Protein (Negative) Urine Glucose (UA) (Negative) Urine Ketones (Negative) Urine Blood (Negative) Urine Nitrite (Negative) Urine Bilirubin (Negative) Urine Urobilinogen (<2.0) mg/dL Ur Leukocyte Esterase (Negative) Urine RBC (0-5) /hpf Urine WBC (0-5) /hpf Ur Squamous Epith Cells (0-4) /hpf Urine Mucus (None) /hpf Urine HCG, Qual (Not Detectd) Disposition Clinical Impression: Nausea & vomiting, Strep pharyngitis Disposition: HOME SELF-CARE Condition: Stable Instructions (If sedation given, give patient instructions): Acute Nausea and Vomiting (ED) Additional Instructions: Please return to the Emergency Department if symptoms worsen or any other concerns. Prescriptions: Metoclopramide [Reglan] 10 mg PO TID PRN #20 tab PRN Reason: Nausea Is patient prescribed a controlled substance at d/c from ED?: No Referrals: Juan Bonner DO [Primary Care Provider] - 1-2 days Time of Disposition: 13:45
[2023-12-25 14:27] VITALS: BP 122/74
== END 2023-12-25 13:51 | disposition home or self-care (01) ==
LOC: EC 10:52
DX: R11.2 Nausea with vomiting, unspecified (principal); J02.0 Streptococcal pharyngitis; F17.290 Nicotine dependence, other tobacco product, uncomplicated; Z88.1 Allergy status to other antibiotic agents
CPT/HCPCS: 36415; 80053; 83690; 85025; 81001; 81025; 99284; 96374; 96375 ×3; 96361 ×2; J1200; J2765; J0696; J1885